=== PATIENT | male | born 1975 | race Caucasian/White ===

== ENCOUNTER 2016-03-27 23:27 | Observation (INO) ==
--- NOTE | 2016-03-28 00:19 | Emergency Department Note ---
Disposition Clinical Impression: Acute appendicitis Qualifiers: Acute appendicitis type: unspecified acute appendicitis type Qualified Code(s) : K35.80 - Unspecified acute appendicitis Disposition: Admitted As Inpatient Condition: Good General Adult HPI - General Chief complaint: ED Abdominal Pain Stated complaint: abd pain/appendicitis per CT Source: patient Limitations: no limitations Nursing Notes Reviewed: Yes Vital Signs Reviewed: Yes - History of Present Illness HPI Narrative: 40-year-old male who was referred here from [facility] in [place] where he was worked up and found to have an early acute appendicitis. He had lab work and a CT of the abdomen and pelvis done earlier this afternoon at that facility. The physician who saw him there, Dr. Del Rosario, consulted the surgeon novelty balloon assembler and packer, Dr. Gallagher, who advised him to send the patient here to the emergency department. Upon arrival I consulted the surgeon, Dr. Gallagher, and advised him the patient was here and he would admit the patient to his service. Pain Scale: 5 - Related Data Allergies Allergy/AdvReac Type Severity Reaction Status Date / Time No Known Allergies Allergy Verified 03/27/16 23:48 All systems ED: reviewed and negative except as stated. Gastrointestinal: Reports: abdominal pain, nausea Past Medical History - Past Medical History Medical history: Reports: no medical history Psychiatric history: Reports: no psych history - Social History Smoking Status: Never smoker Smokeless Tobacco Status: Yes Alcohol use: Reports: occasionally Drug use: Reports: none Physical Exam - General Limitations: no limitations General appearance: alert, in no apparent distress - Chest Chest inspection: Present: normal inspection, symmetric chest wall rise - Respiratory Respiratory exam: Present: normal lung sounds bilaterally - Cardiovascular Cardiovascular exam: Present: regular rate, normal rhythm, normal heart sounds - Abdominal Exam Abdominal exam: Present: soft, tenderness (Moderate right lower quadrant tenderness with guarding.), guarding, normal bowel sounds - Back Exam Back exam: Present: normal inspection. Absent: CVA tenderness (R), CVA tenderness (L) - Neurological Exam Neurological exam: Present: alert, oriented X3. Absent: motor sensory deficit - Psychiatric Psychiatric exam: Present: normal affect, normal mood - Skin Skin exam: Present: warm, dry, intact, normal color Course Vital Signs Temperature 98.1 F 03/27/16 23:48 Pulse Rate 88 03/27/16 23:48 Respiratory Rate 20 03/27/16 23:48 Blood Pressure 174/121 03/27/16 23:48 O2 Sat by Pulse Oximetry 97 03/27/16 23:48 Temperature 98.1 F 03/27/16 23:48 Pulse Rate 88 03/27/16 23:48 Respiratory Rate 20 03/27/16 23:48 Blood Pressure 174/121 03/27/16 23:48 O2 Sat by Pulse Oximetry 97 03/27/16 23:48 Oxygen Delivery Oxygen Delivery Room Air Medical Decision Making - Medical Records Medical records reviewed: Yes I reviewed the patient's medical records. - Lab Data Lab results reviewed: Yes I reviewed the patient's lab results. - Radiology Data Radiology results reviewed: Yes I reviewed the patient's radiology results.
[2016-03-28] MEDS ORDERED: Ondansetron 4 MG/2 ML VIAL IVP PRN ×2 (00:42→09:43)
[2016-03-28] MEDS ORDERED: *HR* HYDROmorphone (PF) 1 MG/ML SYRINGE IVP PRN ×2 (00:42→09:43)
[2016-03-28] MEDS ORDERED: 0.9 % Sodium Chloride 1,000 ML IVC SCH (00:45)
[2016-03-28] MEDS: cefOXitin 1,000 MG in D5% in Water (Mini-Bag+) 100 ML IVPB SCH ×2 (01:43→09:21)
--- NOTE | 2016-03-28 04:48 | General Surg History&Physical ---
Date of Encounter: 03/28/16 Time of Encounter: 04:46 Assessment and Plan (1) Acute appendicitis Current Visit: Yes Status: Acute The assessment and plan as outlined above was discussed with the patient and/or family members who expressed understanding and agreement. All questions were answered. I explained to the patient that he has evidence of early acute appendicitis and I do think it would be appropriate to proceed with a laparoscopic appendectomy. Risks and benefits have been discussed with the patient and he agrees to the above plan. Qualifiers: Acute appendicitis type: with localized peritonitis Qualified Code(s): K35.3 - Acute appendicitis with localized peritonitis History of Present Illness Chief complaint: Right lower abdominal pain HPI: Mr. Mcpherson is a 40 year old male with no significant past medical history presented to the [facility] ED due to a two day history of progressively worsening RLQ pain. The patient denies any nausea or vomiting and denies any diarrhea or constipation. He states the pain is a dull ache that is localized to the RLQ. He does admit that the pain medication has helped with his pain symptoms. Past Med Surg Social Fam HX - Past Medical History Medical history: no medical history Psychiatric history: no psych history - Past Surgical History Surgical History: other (Neck fusion. Right knee surgery) - Social History Smoking Status: Never smoker Smokeless Tobacco Status: Yes Alcohol use: occasionally Drug use: none Medications and Allergies Allergies No Known Allergies Allergy (Verified 03/27/16 23:48) Review of Systems All systems PM: reviewed and no additional remarkable complaints except as stated All systems PM: A 10-system review of systems was performed and is negative for pertinent findings except as documented above in the HPI. General Surgery Exam Initial Vital Signs Temp Pulse Resp BP Pulse Ox 98.1 F 88 20 174/121 97 03/27/16 23:48 03/27/16 23:48 03/27/16 23:48 03/27/16 23:48 03/27/16 23:48 - Eyes PERRL, normal ocular movement - Respiratory normal expansion, normal respiratory effort, clear to auscultation - Cardiovascular Cardiovascular exam: Present: RRR, no murmurs/rubs/gallops - Abdomen Abdomen general surgery: Present: bowel sounds present, soft, tender (right lower quadrant. ) - Integumentary Integumentary general surgery: Present: warm and dry - Neurologic Present: CN 2-12 grossly intact - Musculoskeletal Present: other (No clubbing, cyanosis, or edema) - Psychiatric Psychiatric general surgery: Present: A&Ox3 Results - Labs All other labs normal. - Imaging CT scan - abdomen: report reviewed, image reviewed (Images reviewed by me an consistent with early acute appendicitis.)
[2016-03-28 06:12] LABS: Basophils % 0.2 %; Eosinophils # 0.2 K/mcL (0.0-0.6); Eosinophils % 1.6 %; Hematocrit 39.4 % (37.5-50.1); Hemoglobin 13.6 g/dL (12.9-16.9); Immature Granulocytes % 0.2 % (0-4); Lymphocytes # 2.4 K/mcL (0.6-4.6); Lymphocytes % 21.2 %; Mean Corpuscular HGB Conc 34.5 g/dL (31.6-35.5); Mean Corpuscular Volume 92.7 fL (83.0-100.0); Mean Platelet Volume 10.7 fL (9.4-12.4); Monocytes % 8.7 %; Neutrophils # 7.6 K/mcL (1.6-8.9); Platelet Count 196 K/mcL (140-400); Red Blood Count 4.25 M/mcL (4.19-5.50); Red Cell Distribution Width 11.9 % (11.5-14.5); Segmented Neutrophils % 68.1 %
[2016-03-28] MEDS ORDERED: Dexamethasone 4 MG/ML VIAL ONE (07:17)
[2016-03-28] MEDS ORDERED: Lidocaine -MPF 2% 2 ML VIAL ONE (07:17)
[2016-03-28] MEDS ORDERED: *HR* Rocuronium Bromide 50 MG/5 ML VIAL ONE (07:17)
[2016-03-28] MEDS ORDERED: Ondansetron 4 MG/2 ML VIAL ONE (07:17)
[2016-03-28] MEDS ORDERED: *HR* Succinylcholine 200 MG/10 ML VIAL IVP ONE (07:17)
[2016-03-28] MEDS ORDERED: *HR* FentaNYL (PF) 100 MCG/2 ML VIAL ONE (07:17)
[2016-03-28] MEDS ORDERED: *HR* Propofol 200 MG/20 ML VIAL IVP ONE (07:17)
[2016-03-28] MEDS ORDERED: *HR* Midazolam HCl 2 MG/2 ML VIAL ONE (07:17)
[2016-03-28] MEDS ORDERED: Lidocaine -MPF 4% 5 ML AMPUL ONE (07:32)
--- NOTE | 2016-03-28 07:36 | Anesthesia Evaluation PreOp ---
Date of Encounter: 03/28/16 Time of Encounter: 07:30 - Past History Planned Operation: Lap Appy Cardiac History: Denies any Significant Hx Pulmonary History: Denies Any Significant HX ALPINE GUIDE History: Denies Any Significant HX Other Medical History: Denies Any Significant HX Anesthesia History: No Prior Anesthetic Complications, Past Anesthesia (Neck fusion 2002, R-knee surgery) Alcohol Use: occasionally Drug use: none Medications and Allergies Allergies No Known Allergies Allergy (Verified 03/27/16 23:48) - Meds/Allergy Pre-op Review Medications Reviewed: Yes Allergies Reviewed: Yes Beta Blockers on Current Med List: No Anesthesia Results - Labs 03/28/16 06:01 Anesthesia Exam Vital Signs Temp Pulse Resp BP Pulse Ox 03/28/16 02:29 98.0 F 54 16 110/68 95 03/28/16 00:55 16 138/84 03/27/16 23:48 98.1 F 88 20 174/121 97 Intake and Output 03/27/16 03/27/16 03/28/16 15:59 23:59 07:59 Intake Total 100 / 100 Balance 100 / 100 Intake: IV Fluids 100 / 100 Mefoxin 1,000 MG In 100 / 100 Dextrose 5% (Minibag+) 100 ML 100 ML @ 200 mls/ hr IVPB Q8HR [facility] Rx#: [id number] Other: Stool Characteristics Normal for Patient Weight 88.451 kg 89.358 kg Patient Weight 03/28/16 23:59 Weight 89.358 kg Height: 5'11 Weight: 197# NPO (# of Hours): MNoc - HEENT Pupil (Motor): Pupils equal, EOMI Mallampati: II Teeth: Normal Oral Opening: Greater than 3 - ALPINE GUIDE LOC: Oriented ALPINE GUIDE Motor: Normal RUE, Normal LUE, Normal RLE, Normal LLE, Normal Face ALPINE GUIDE Sensory: Normal: RUE, LUE, RLE, LLE, Face - Cardiac Rhythm: Regular Murmur: None - Pulmonary Breath Sounds: bilateral Clear Respiratory Effort: Symmetrical Anesthesia Assess/Plan ASA Score: 2, E Modified [place] Scale for Level of Consciousness: Cooperative, oriented, and tranquil Anesthetic Plan: General Monitoring Plan: Standard Monitors Recovery Plan: PACU Anes Supervising Prov Stmt: Pt seen/evaluated, R&B discussed, questions answered and consent obtained. Kenzie Mendoza MD
[2016-03-28] MEDS ORDERED: Acetaminophen IV 1,000 MG/100 ML INFUS..BTL ONE (07:44)
[2016-03-28] MEDS ORDERED: EPHEDrine 50 MG/ML VIAL ONE (08:14)
[2016-03-28] MEDS ORDERED: Ketorolac 30 MG/ML VIAL ONE ×2 (08:21→09:57)
[2016-03-28] MEDS ORDERED: Neostigmine Methylsulfate 3 MG/3 ML SYRINGE ONE ×2 (08:24→10:04)
[2016-03-28] MEDS ORDERED: *HR* Promethazine 25 MG/ML VIAL IVP PRN (08:32)
--- NOTE | 2016-03-28 08:40 | Operative Note ---
Date of procedure: 03/28/16 Pre-op diagnosis: acute appendicitis Post-op diagnosis: same Procedure: 1. Laparoscopic appendectomy 2. Open umbilical hernia repair. Anesthesia: GETA Surgeon: Heron Gallagher Condition: stable Disposition: PACU Procedure in Detail: Date of surgery: 03/28/16 After properly identifying the patient, the patient was brought to the operating room and placed in the supine position. After proper IV sedation was achieved followed by general endotracheal intubation, the patient's abdomen was prepped and draped in a normal sterile fashion. A timeout was performed noting the patient's name and type of procedure to be performed. Of note; the patient had evidence of a smal umbilical hernia defect. A subumbilical incision with an 11 blade scalpel was made down to the level of the rectus fascia. The hernia sac was cleared away from the dermis of the umbilicus with sharp dissection. The hernia sac was then entered and a 12 mm port was placed through the hernia defect. A laparoscopic camera was placed through the port which showed no injury to the intra-abdominal organs upon entry and the abdomen was insufflated with carbon dioxide. A suprapubic 5 mm port and a left lower quadrant 5 mm port were placed under direct camera visualization. The right lower quadrant was examined and there was a dilated at the mid- portion of the appendix with mild fibrinous exudate, consistent with acute appendicitis. The appendix was grasped with a nontraumatic grasper and the meso -appendix and base of the appendix were dissected free with the [place] dissector. The meso-appendix and the base of the appendix were transected with a laparoscopic MAURICE stapler. The right lower quadrant and pelvis were irrigated with normal saline solution until the effluent was clear and reinspection of the right lower quadrant demonstrated maintenance of hemostasis. All ports were removed from the abdomen after the abdomen was desufflated. The umbilical hernia defect was closed by reapproximating the fascia with a [id number] 0 Vicryl suture. The subcutaneous tissue was reapproximated with an interrupted 3-0 Vicryl suture and the epidermal and dermal layers for the remaining incisions were closed with 4-0 Monocryl sutures. Needle, sponge, and instrument counts were correct 2 and the incisions were covered with Steri- Strips and Band-Aids. The patient was aroused him IV sedation, extubated in the operating room without complication, and transported to the recovery room in stable condition.
[2016-03-28] MEDS ORDERED: *HR* HYDROmorphone (PF) 1 MG/ML SYRINGE ONE ×2 (08:47→09:06)
[2016-03-28] MEDS ORDERED: Pantoprazole 40 MG VIAL IVP SCH (09:00)
[2016-03-28] MEDS: *HR* HYDROmorphone (PF) 1 MG/ML SYRINGE IVP PRN ×3 (09:05→09:22)
[2016-03-28] MEDS ORDERED: Ringers Solution, Lactated 1,000 ML ONE (09:12)
--- NOTE | 2016-03-28 09:24 | Anesthesia Evaluation Post Op ---
Date of Encounter: 03/28/16 Time of Encounter: 09:25 - Vital Signs Vital Signs: Vital Signs/O2 Sat/Glucose, Most Current Temp Pulse Resp BP Pulse Ox 03/28/16 09:21 97.7 F 56 16 111/64 97 03/28/16 09:11 97.7 F 53 16 115/70 99 03/28/16 09:01 50 16 120/69 99 03/28/16 08:51 54 16 120/72 98 03/28/16 08:41 97.8 F 67 16 115/69 96 - Lungs Lungs: Clear Ascult./Percussion - Airway Airway: Non-obstructed - Cardiovascular Regular Rate - Mental Status Mental Status: Alert & Oriented, Answers Appropriately - Pain Pain Scale: 0 - Nausea Vomiting Nausea Vomiting: Not Present - Hydration Hydration: Tolerates oral liquids, Ice chips - Discharge PostOp Status: Transfer Patient to floor
[2016-03-28] MEDS ORDERED: *HR* OxyCODONE/APAP 10/325 TABLET PO PRN (09:43)
[2016-03-28] MEDS ORDERED: *HR* HYDROmorphone 2 MG/ML SYRINGE ONE (10:03)
--- NOTE | 2016-03-28 11:52 | Discharge Summary ---
Date of Encounter: 03/28/16 Time of Encounter: 11:50 - Discharge Diagnosis (1) Acute appendicitis Priority: Primary Status: Resolved Qualifiers: Acute appendicitis type: with localized peritonitis Qualified Code(s): K35.3 - Acute appendicitis with localized peritonitis - Discharge Medications Prescriptions: OxyCODONE/APAP 10/325 [Percocet 10/325 MG] 1 each PO Q6HR PRN #30 tablet PRN Reason: Moderate Pain Amoxicillin/Clavulanate [Augmentin] 875 mg PO BIDWM #6 tablet Docusate [Colace] 100 mg PO BID #30 capsule Home Medications: Amoxicillin/Clavulanate [Augmentin] 875 mg PO BIDWM #6 tablet 03/28/16 [Rx] Docusate [Colace] 100 mg PO BID #30 capsule 03/28/16 [Rx] OxyCODONE/APAP 10/325 [Percocet 10/325 MG] 1 each PO Q6HR PRN #30 tablet [Rx] Allergies/Adverse Reactions: Allergies No Known Allergies Allergy (Verified 03/27/16 23:48) General Surgery Exam Initial Vital Signs Temp Pulse Resp BP Pulse Ox 98.1 F 88 20 174/121 97 03/27/16 23:48 03/27/16 23:48 03/27/16 23:48 03/27/16 23:48 03/27/16 23:48 - General physical appearance well developed, well nourished, no distress - Eyes normal ocular movement - ENT normal mucosa, atraumatic, normocephalic - Neck trachea midline - Respiratory normal respiratory effort, clear to auscultation - Cardiovascular Cardiovascular exam: Present: RRR - Abdomen Abdomen general surgery: Present: bowel sounds present, soft, tender (expected postoperative tenderness) - Incision Incision: Present: clean and dry, intact - Neurologic Present: CN 2-12 grossly intact - Musculoskeletal Present: normal gait, normal posture - Psychiatric Psychiatric general surgery: Present: appropriate, oriented to person, oriented to place, oriented to time, speech is normal, memory intact Date of admission: 03/28/16 00:34 Primary care physician: Kalin Pichardo DO [facility] Anticipated date of discharge: 03/28/16 - Patient Status Disposition: Home, Self-Care Condition: Good Overall status at discharge: patient is progressing back to baseline - Discharge Instructions Follow Up With: Kalin Pichardo DO [Primary Care Provider] - Heron Gallagher MD [Partnered Physician] - 04/10/16 2:05 pm (surgery follow- up) Additional Instructions: #1 may shower, no tub bath for 2 weeks #2 wash incisions with soap and water and pat dry daily #3 no lifting, pushing, pulling more than 15 pounds for the next 2 weeks #4 no driving until off narcotics for 24 hours and able to safely react in the car #5 may climb stairs - Diet and Activity Activity: increase activity as tolerated Diet: advance to your usual diet - Hospital Course Hospital course: Mr. Mcpherson is a 40 year old male presented to the hospital with complaints of RLQ pain. He was found to have radiologic evidence of acute appendicitis. He was started on IV antibiotics and taken to the operating room for a Laparoscopic appendectomy with Dr. Gallagher. He also had a primary repair of an umbilical hernia. We will begin discharge planning to home when the patient meets discharge criteria including: tolerating liquids without nausea or vomiting, pain is well controlled,vital signs are stable and afebrile, ambulating and voiding without difficulty. We will plan for outpatient follow- up in the next 10-14 days. - Time Spent with Patient Total time spent providing and/or coordinating discharge services: Less than 30 minutes Labs on day of discharge: Labs from last 24 hours 03/28/16 06:01 WBC 11.1 RBC 4.25 Hgb 13.6 Hct 39.4 MCV 92.7 MCH 32.0 MCHC 34.5 RDW 11.9 Plt Count 196 MPV 10.7 Immature Gran % 0.2 Seg Neutrophils % 68.1 Lymphocytes % 21.2 Monocytes % 8.7 Eosinophils % 1.6 Basophils % 0.2 Neutrophils # 7.6 Lymphocytes # 2.4 Monocytes # 1.0 Eosinophils # 0.2 Basophils # 0.0 - Attending Attestation I examined this patient and my medical decision-making was reviewed with the PLASTIC OUTFITTER/PA/Advanced Practice Nurse/Resident Physician. I agree with the documented findings, disposition and treatment plan as described except to the extent set forth below.
[2016-03-28 12:38] VITALS: BP 109/65
[2016-03-28] MEDS ORDERED: cefOXitin 1,000 MG in D5% in Water (Mini-Bag+) 100 ML IVPB SCH (16:00)
[2016-03-29] MEDS ORDERED: Pantoprazole 40 MG VIAL IVP SCH (09:00)
== END 2016-03-28 16:57 | disposition home or self-care (01) ==
LOC: EMEROO 23:27 → 3BNU 23:27
PROVIDERS: ADMIT Surgery; ATTEND Surgery